=== PATIENT | male | born 1960 | race Caucasian/White ===

== ENCOUNTER 2020-10-10 05:30 | Outpatient (RCR) | payer MEDICARE, MEDICAID ==
[~2020-10-10] VITALS: Ht 175.3 cm; Wt 121.1 kg
[~2020-10-10 05:30] MED LIST: ALBU2TAB38 GT; AMLO-167 PO; AMLO-79 PO; ASP81CT PO; ASPI-999 PO; CELE-63 PO; DICL75TA2 PO; FENO135C PO; FENO135C4 PO; HYDR-34 PO; HYDR12.56 PO; METH250T PO; METH25TA5 PO; METO100T5 PO; METO10TA3 PO; MTC10T PO; MTP100TCR PO; NF-DICLTB PO; OMEG1CAP51 PO; OMEP20CA18 PO; OMEP20TA2 PO; OMEP40CA36 PO; ORPH100T PO; ROPI0.5T2 PO; SIMV80TA21 PO; SIMV80TA3 PO; TAMS0.4C2 PO; TELM1TAB2 PO; TRIA1CAP4 PO
== END 2020-10-10 12:39 | disposition home or self-care (01) ==
LOC: PREOP 05:30
PROVIDERS: ATTEND Surgery
DX: Z01.818 Encounter for other preprocedural examination (principal)

== ENCOUNTER 2022-06-02 05:38 | Outpatient (CLI) | payer MEDICARE, MEDICAID ==
[~2022-06-02] VITALS: Ht 175.3 cm; Wt 121.1 kg
[2022-06-02] MEDS ORDERED: MONT-40 PO (16:05)
[2022-06-02] MEDS ORDERED: METO50TA7 PO (16:05)
[2022-06-02] MEDS ORDERED: SEMA0.25 SQ (16:05)
[2022-06-02] MEDS ORDERED: FLUT1DIS26 IH (16:05)
[2022-06-02] MEDS ORDERED: CLOT15CR6 TP (16:05)
[2022-06-02] MEDS ORDERED: CLN.1T PO (16:05)
[2022-06-02] MEDS ORDERED: HYDR25TA4 PO (16:05)
[2022-06-02] MEDS ORDERED: RT-ALBUINH INH (16:05)
[2022-06-02] MEDS ORDERED: DICL100G13 TP (16:05)
== END 2022-06-02 16:06 | disposition home or self-care (01) ==
LOC: PREOP 05:38
PROVIDERS: ATTEND Surgery
DX: Z01.818 Encounter for other preprocedural examination (principal)

== ENCOUNTER → 2023-02-01 | Outpatient (CLI) | payer OTHER, MEDICARE, MEDICAID ==
[~2023-02-01] MED LIST changes: +CLN.1T PO; +CLOT15CR6 TP; +DICL100G13 TP; +FLUT1DIS26 IH; +HYDR25TA4 PO; +METO50TA7 PO; +MONT-40 PO; +RT-ALBUINH INH; +SEMA0.25 SQ
== END ==
LOC: LABNPT 10:11
PROVIDERS: ATTEND Internal Medicine
DX: Z01.89 Encounter for other specified special examinations (principal)
CPT/HCPCS: 80202